=== PATIENT | male | born 1995 | race African-American/Black ===

== ENCOUNTER 2018-05-20 10:51 | Emergency (ER) | payer OTHER ==
[~2018-05-20] VITALS: Ht 180.3 cm; Wt 78.9 kg
[2018-05-20 11:14] LABS: URINE BILIRUBIN NEGATIVE (Negative); URINE BLOOD NEGATIVE (Negative); URINE CLARITY CLEAR; URINE COLOR YELLOW; URINE GLUCOSE-RANDOM NEGATIVE (Negative); URINE KETONES NEGATIVE (Negative); URINE NITRITE NEGATIVE (Negative); URINE PROTEIN 1+ (Negative); URINE SPECIFIC GRAVITY >= 1.030 (1.005-1.030); URINE UROBILINOGEN 0.2 E.U./dl (0.2-1.0)
[2018-05-20 11:23] LABS: SQUAMOUS 0-3 Few /LPF (0-3); URINE LEUKOCYTES TRACE (Negative)
[2018-05-20 11:24] LABS: BACTERIA 1-9 Few /HPF (None Seen); CASTS None Seen /LPF (None Seen); CRYSTALS None Seen /LPF (None Seen); MUCUS None Seen strn/LPF (None Seen); URINE RBC 3-10 Few /HPF (0-2); URINE WBC 6-15 Few /HPF (0-5)
[2018-05-20 11:33] VITALS: BP 126/60
[2018-05-20] MEDS ORDERED: FLAGYL500 MG PO (15:59)
== END 2018-05-20 11:34 | disposition home or self-care (01) ==
LOC: M.ERS 10:51
PROVIDERS: Physician Assistant
DX: A59.9 Trichomoniasis, unspecified (principal)

== ENCOUNTER 2018-06-21 14:08 | Emergency (ER) | payer OTHER ==
[~2018-06-21] VITALS: Ht 180.3 cm; Wt 79.4 kg
[~2018-06-21 14:08] MED LIST: FLAGYL500 MG PO
[2018-06-21] MEDS ORDERED: ERYTHROMYCIN E3.5 G2 OPHTHALMIC (15:01)
[2018-06-21 15:18] VITALS: BP 146/84
== END 2018-06-21 15:19 | disposition home or self-care (01) ==
LOC: M.ERS 14:08
DX: D18.09 Hemangioma of other sites (principal); F17.210 Nicotine dependence, cigarettes, uncomplicated

== ENCOUNTER 2018-09-05 22:57 | Emergency (ER) | payer OTHER ==
[~2018-09-05] VITALS: Ht 180.3 cm; Wt 79.4 kg
[~2018-09-05 22:57] MED LIST changes: +ERYTHROMYCIN E3.5 G2 OPHTHALMIC
[2018-09-05 23:35] VITALS: BP 140/82
== END 2018-09-05 23:35 | disposition home or self-care (01) ==
LOC: M.ERS 22:57
DX: S02.5XXA Fracture of tooth (traumatic), initial encounter for closed fracture (principal); F17.210 Nicotine dependence, cigarettes, uncomplicated; X58.XXXA Exposure to other specified factors, initial encounter; Y93.89 Activity, other specified; Y92.89 Other specified places as the place of occurrence of the external cause; Y99.8 Other external cause status